=== PATIENT | male | born 1995 | race African-American/Black ===

== ENCOUNTER 2023-02-17 22:18 | Emergency (ER) | payer MEDICAID, OTHER ==
[~2023-02-17] VITALS: Ht 208.3 cm; Wt 96.0 kg
[2023-02-17 22:21] VITALS: BP 133/76; PULSE 81; RESP 18; TEMP 100; O2SAT 98
== END 2023-02-17 23:02 | disposition home or self-care (01) ==
LOC: ER 22:18
DX: R06.00 Dyspnea, unspecified (principal); R06.02 Shortness of breath
CPT/HCPCS: 71045; 99283

== ENCOUNTER 2024-05-26 18:20 | Emergency (ER) | payer OTHER ==
[~2024-05-26] VITALS: Ht 205.7 cm; Wt 102.0 kg
[2024-05-26 18:22] VITALS: BP 120/78; PULSE 67; RESP 16; TEMP 98.4; O2SAT 100
[2024-05-26] MEDS ORDERED: AMOX250S70 MT (18:53)
[2024-05-26] MEDS ORDERED: BO1 TP (18:53)
[2024-05-26] MEDS ORDERED: ACET-2708 MT (18:53)
[2024-05-26] MEDS: TETANUS, DIPHTHERIA, PERTUSSIS VAC/PF 0.5ML (>10YR OLD) IM ONE (19:32)
== END 2024-05-26 19:34 | disposition home or self-care (01) ==
LOC: ER 18:20
DX: S81.812A Laceration without foreign body, left lower leg, initial encounter (principal); W54.0XXA Bitten by dog, initial encounter; Y93.89 Activity, other specified; Y92.89 Other specified places as the place of occurrence of the external cause; Y99.8 Other external cause status
CPT/HCPCS: 99283